=== PATIENT | female | born 1980 | race Caucasian/White ===

== ENCOUNTER 2016-07-31 15:09 | Emergency (ER) | payer MEDICARE ==
--- NOTE | 2016-07-31 15:56 | ED ---
General Adult HPI - General Chief complaint: Urogenital Stated complaint: poss UTI Time Seen by Provider: 07/31/16 15:41 Source: patient, RN notes reviewed Mode of arrival: ambulatory Limitations: no limitations - History of Present Illness Initial comments: This is a 36yo female who presents with dysuria and frequency of urination. Patient states this has been going on since Friday. Patient states that she's been drinking cranberry juice and water and this helped with symptoms for a day or 2 but now the symptoms are back and they're worse. Patient states she feels the urge to go but then voids very little. Patient denies any abdominal pain or back pain. Patient denies any recent fever, chills, shortness breath, chest pain, nausea/vomiting/diarrhea, numbness, tingling, hematuria, headache, or visual changes, or any other complaints. or back pain. Patient states she's had a tubal ligation and has an IUD. - Related Data Home Medications Medication Instructions Recorded Confirmed [place] Carbonate [[place]] 3 tab PO HS 08/10/15 08/10/15 clonazePAM [Clonazepam] 0.5 mg PO DAILY PRN 08/10/15 08/10/15 Divalproex [Depakote] 900 mg PO HS 07/31/16 07/31/16 Previous Rx's Medication Instructions Recorded Sulfamethox-Tmp 800-160Mg [Bactrim 1 tab PO Q12HR #28 tab 07/31/16 DS 800-160 mg] Allergies Allergy/AdvReac Type Severity Reaction Status Date / Time aripiprazole [From Abilify] Allergy Unknown Verified 07/31/16 15:37 latex Allergy Unknown Verified 07/31/16 15:37 Review of Systems ROS Statement: Those systems with pertinent positive or pertinent negative responses have been documented in the HPI. ROS Other: All systems not noted in ROS Statement are negative. Past Medical History Past Medical History: No Reported History Additional Past Medical History / Comment(s): SVT History of Any Multi-Drug Resistant Organisms: None Reported Past Surgical History: Section, Tonsillectomy, Tubal Ligation Past Psychological History: Anxiety, Bipolar, PTSD Smoking Status: Current every day smoker Past Alcohol Use History: Occasional Past Drug Use History: Marijuana General Exam - General Exam Comments Initial Comments: General: The patient is awake and alert, in no distress, and does not appear acutely ill. Mouth and throat: There are moist mucous membranes and no oral lesions. Neck: The neck is supple, there is no tenderness or JVD. Cardiovascular: There is a regular rate and rhythm. No murmur, rub or gallop is appreciated. Respiratory: Lungs are clear to auscultation, respirations are non-labored, breath sounds are equal. No wheezes, stridor, rales, or rhonchi. Gastrointestinal: Soft, non-distended, non-tender abdomen without masses or organomegaly noted. There is no rebound or guarding present. No CVA tenderness. Bowel sounds are unremarkable. Musculoskeletal: Normal ROM, no tenderness. Strength 5/5. Sensation intact. Radial pulses equal bilaterally 2+. Neurological: A&O x 3. CN II-XII intact, There are no obvious motor or sensory deficits. Coordination appears grossly intact. Speech is normal. Skin: Skin is warm and dry and no rashes or lesions are noted. Psychiatric: Cooperative, appropriate mood & affect, normal judgment. Limitations: no limitations Course Vital Signs 07/31/16 15:35 Temperature 98.1 F Pulse Rate 95 Respiratory 18 Rate Blood Pressure 100/68 O2 Sat by Pulse 97 Oximetry Medical Decision Making - Medical Decision Making This is a 36-year-old female presents with complaints of dysuria and frequency of urination. On physical exam abdomen is soft, nontender nondistended and there is no CVA tenderness. Patient is afebrile in the EC. A urinalysis was done and reviewed and came back positive for UTI. I discussed that patient may have a course of Bactrim. I discussed continuation of fluids and cranberry juice. I discussed return parameters such as fever/chills, abdominal pain, back pain, hematuria. I discussed the patient should follow-up with her primary care physician in one to 2 days or return to the EC for any worsening symptoms or for any further concerns. Patient was receptive to this plan and patient will be discharged home - Lab Data Lab Results 07/31/16 Range/Units 15:40 Urine Color Light Yellow Urine Appearance Cloudy H (Clear) Urine pH 7.5 (5.0-8.0) Ur Specific [place] 1.006 (1.001-1.035) Urine Protein Negative (Negative) Urine Glucose (UA) Negative (Negative) Urine Ketones Negative (Negative) Urine Blood Moderate H (Negative) Urine Nitrate Positive H (Negative) Urine Bilirubin Negative (Negative) Urine Urobilinogen <2.0 (<2.0) mg/dL Ur Leukocyte Esterase Large H (Negative) Urine RBC 11 H (0-5) /hpf Urine WBC 171 H (0-5) /hpf Ur Squamous Epith Cells 2 (0-4) /hpf Calcium Oxalate Crystal Rare H (None) /hpf Urine Bacteria Rare H (None) /hpf Urine Yeast (Budding) Occasional H (None) /hpf Disposition Clinical Impression: Urinary tract infection Disposition: HOME SELF-CARE Condition: Good Instructions: Urinary Tract Infection in Women (ED) Additional Instructions: Please finish entire course of antibiotics. Please continue drinking plenty of fluids and/or cranberry juice. Please return to the EC for any worsening symptoms or for any further concerns. Please follow up with your PCP in 1-2 days. Prescriptions: Sulfamethox-Tmp 800-160Mg [Bactrim DS 800-160 mg] 1 tab PO Q12HR #28 tab Referrals: Nonstaff,Physician [Primary Care Provider] - 1-2 days Aggie Pierre MD [STAFF PHYSICIAN] - 1-2 days Time of Disposition: 16:21
[2016-07-31 16:07] LABS: Appearance,Urine Cloudy (Clear); Bacteria,Urine Rare /hpf; Bilirubin,Urine Negative (Negative); Calcium Oxalate Crystals,Urine Rare /hpf; Glucose,Urine (UA) Negative (Negative); Ketones,Urine Negative (Negative); Leukocyte Esterase,Urine Large (Negative); Nitrite,Urine Positive (Negative); PH, Urine 7.5 (5.0-8.0); Particle Count 13394; Protein,Urine Negative (Negative); RBC,Urine 11 /hpf (0-5); Specific Gravity,Urine 1.006 (1.001-1.035); Squamous Epithelial Cell,Urine 2 /hpf (0-4); UA Billing (MACRO vs. MICRO) MICRO; Urobilinogen,Urine <2.0 mg/dL (<2.0); WBC,Urine 171 /hpf (0-5)
[2016-07-31 16:32] VITALS: BP 138/56; PULSE 65; RESP 20; TEMP 97.9
== END 2016-07-31 16:25 | disposition home or self-care (01) ==
LOC: EC 15:09
DX: N39.0 Urinary tract infection, site not specified (principal); Z79.899 Other long term (current) drug therapy; Z91.040 Latex allergy status; Z88.8 Allergy status to other drugs, medicaments and biological substances; F41.8 Other specified anxiety disorders; F31.9 Bipolar disorder, unspecified; F43.10 Post-traumatic stress disorder, unspecified; F17.200 Nicotine dependence, unspecified, uncomplicated
CPT/HCPCS: 81001; 87086; 99283

== ENCOUNTER 2016-10-01 16:46 | Emergency (ER) | payer MEDICARE, OTHER ==
[2016-10-01 17:45] VITALS: BP 100/73; PULSE 81; RESP 20; TEMP 97.8
[2016-10-01] MEDS ORDERED: KETOROLAC 60 MG/2 ML VIAL IM STA (18:21)
--- NOTE | 2016-10-01 18:31 | ED ---
Upper Extremity HPI - General Chief Complaint: Extremity Injury, Upper Stated Complaint: Shoulder Pain Time Seen by Provider: 10/01/16 18:13 Source: patient, RN notes reviewed Mode of arrival: ambulatory Limitations: no limitations - History of Present Illness Initial Comments: 36-year-old female presents emergency Department chief complaint of right shoulder pain. Patient has had chronic right shoulder pain for the last 2 years. Patient states she's been to physical therapy as well as seen her doctor for this. They she states that she quit physical therapy was not helping. She states she just has his right shoulder pain and will radiate down her right arm. She states it's been exactly this way for the past year or so. Patient denies any new falls traumas or injuries. Patient states she has not been taking anything for pain she does not have anything to take. Patient states she needs something to help with the pain.Patient denies any recent fever , chills, shortness of breath, chest pain, back pain, abdominal pain, nausea vomiting, numbness or tingling, dysuria or hematuria, constipation or diarrhea, headaches or visual changes, or any other current symptoms. - Related Data Home Medications Medication Instructions Recorded Confirmed clonazePAM [Clonazepam] 0.5 mg PO DAILY PRN 08/10/15 10/01/16 Divalproex [Depakote] 900 mg PO HS 07/31/16 10/01/16 Ziprasidone HCl [Geodon] 40 mg PO DAILY 10/01/16 10/01/16 Previous Rx's Medication Instructions Recorded Ibuprofen [Motrin] 600 mg PO Q6HR PRN #20 tab 10/01/16 predniSONE 50 mg PO DAILY #5 tab 10/01/16 Allergies Allergy/AdvReac Type Severity Reaction Status Date / Time aripiprazole [From Abilify] Allergy Unknown Verified 10/01/16 17:45 latex Allergy Unknown Verified 10/01/16 17:45 Review of Systems ROS Statement: Those systems with pertinent positive or pertinent negative responses have been documented in the HPI. ROS Other: All systems not noted in ROS Statement are negative. Past Medical History Past Medical History: No Reported History Additional Past Medical History / Comment(s): SVT History of Any Multi-Drug Resistant Organisms: None Reported Past Surgical History: Section, Tonsillectomy, Tubal Ligation Past Psychological History: Anxiety, Bipolar, PTSD Smoking Status: Current some day smoker Past Alcohol Use History: Occasional Past Drug Use History: Marijuana General Exam - General Exam Comments Initial Comments: General: The patient is awake and alert, in no distress, and does not appear acutely ill. Neck: The neck is supple, there is no tenderness or JVD. Cardiovascular: There is a regular rate and rhythm. No murmur, rub or gallop is appreciated. Respiratory: Lungs are clear to auscultation, respirations are non-labored, breath sounds are equal. No wheezes, stridor, rales, or rhonchi. Musculoskeletal: Sensation intact a 2+ pulses. Right upper extremity. Full range of motion of the right shoulder however pain to palpation and pain in all planes with range of motion of the Right shoulder. Patient so tenderness patient along the right neck. 2+ pulses throughout. Neurological: CN II-XII intact, There are no obvious motor or sensory deficits. Coordination appears grossly intact. Speech is normal. Skin: Skin is warm and dry and no rashes or lesions are noted. Psychiatric: Normal mood and affect. Limitations: no limitations Course Vital Signs 10/01/16 17:43 Temperature 97.8 F Pulse Rate 81 Respiratory 20 Rate Blood Pressure 100/73 O2 Sat by Pulse 100 Oximetry Medical Decision Making - Medical Decision Making 36-year-old female presents for appears to be chronic right shoulder strain. This time we discussed we will give her orthopedic associates to follow-up for shoulder pain. She received Toradol here. We'll start her Motrin may also did give her a current use of steroids to the fact there is some radiation the pain. We did discuss return parameters and follow-up and all patient's questions. She stated that she understood and is in agreement with plan. This time she'll be discharged home. Disposition Clinical Impression: Right shoulder strain Disposition: HOME SELF-CARE Condition: Stable Instructions: Shoulder Sprain (ED) Additional Instructions: Please use medication as discussed. Please follow up with family doctor if symptoms have not improved over the next two days. Please return to the emergency room if your symptoms increase or worsen or for any other concerns. Prescriptions: Ibuprofen [Motrin] 600 mg PO Q6HR PRN #20 tab PRN Reason: Pain predniSONE 50 mg PO DAILY #5 tab Referrals: Nonstaff,Physician [Primary Care Provider] - 1-2 days Aggie Pierre MD [STAFF PHYSICIAN] - 1-2 days Anderson Moreland DO [Doctor of Osteopathic Medicine] - 1-2 days Time of Disposition: 18:31
== END 2016-10-01 18:46 | disposition home or self-care (01) ==
LOC: EC 16:46
DX: S46.911A Strain of unspecified muscle, fascia and tendon at shoulder and upper arm level, right arm, initial encounter (principal); F41.9 Anxiety disorder, unspecified; F31.9 Bipolar disorder, unspecified; F17.200 Nicotine dependence, unspecified, uncomplicated; Z79.899 Other long term (current) drug therapy; Z91.040 Latex allergy status; Z88.8 Allergy status to other drugs, medicaments and biological substances; X58.XXXA Exposure to other specified factors, initial encounter
CPT/HCPCS: 99283; 96372; J1885

== ENCOUNTER 2017-09-25 17:04 | Emergency (ER) | payer MEDICARE ==
[2017-09-25 17:30] VITALS: BP 108/71; PULSE 95; RESP 18; TEMP 98.8
--- NOTE | 2017-09-25 17:50 | ED ---
General Adult HPI - General Chief complaint: Upper Respiratory Infection Stated complaint: flu like symptoms Time Seen by Provider: 09/25/17 17:33 Source: patient, RN notes reviewed Mode of arrival: ambulatory Limitations: no limitations - History of Present Illness Initial comments: Patient's 37-year-old female presenting to the emergency room today with a chief complaint cough congestion over the past week. Does admit to positive sputum production. States her boyfriend has similar symptoms. Does admit some body aches chills but no fever. Denies any other complaints. Patient denies any recent fever, shortness of breath, chest pain, back pain, abdominal pain, nausea or vomiting, numbness or tingling, dysuria or hematuria, constipation or diarrhea, headaches or visual changes, or any other complaints. - Related Data Home Medications Medication Instructions Recorded Confirmed clonazePAM [Clonazepam] 0.5 mg PO DAILY PRN 08/10/15 10/01/16 Divalproex [Depakote] 900 mg PO HS 07/31/16 10/01/16 Ziprasidone HCl [Geodon] 40 mg PO DAILY 10/01/16 10/01/16 Previous Rx's Medication Instructions Recorded Ibuprofen [Motrin] 600 mg PO Q6HR PRN #20 tab 10/01/16 predniSONE 50 mg PO DAILY #5 tab 10/01/16 Cyclobenzaprine [Flexeril] 10 mg PO TID #15 tab 08/11/17 Ibuprofen [Motrin] 600 mg PO Q8HR PRN #30 tab 08/11/17 Azithromycin [Zithromax Z-pack] 0 mg PO DIRECTED #6 tab 09/25/17 methylPREDNISolone Dose Pack 4 mg PO DIRECTED #21 package 09/25/17 [Medrol Dose Pack] Allergies Allergy/AdvReac Type Severity Reaction Status Date / Time aripiprazole [From Abilify] Allergy Unknown Verified 08/11/17 00:09 latex Allergy Unknown Verified 08/11/17 00:09 Review of Systems ROS Statement: Those systems with pertinent positive or pertinent negative responses have been documented in the HPI. ROS Other: All systems not noted in ROS Statement are negative. Past Medical History Past Medical History: No Reported History Additional Past Medical History / Comment(s): SVT History of Any Multi-Drug Resistant Organisms: None Reported Past Surgical History: Section, Tonsillectomy, Tubal Ligation Additional Past Surgical History / Comment(s): wisdom teeth Past Psychological History: Anxiety, Bipolar, PTSD Smoking Status: Current some day smoker Past Alcohol Use History: Occasional Past Drug Use History: Marijuana General Exam - General Exam Comments Initial Comments: General: The patient is awake and alert, in no distress, and does not appear acutely ill. Eye: Pupils are equal, round and reactive to light, extra-ocular movements are intact. No nystagmus. There is normal conjunctiva bilaterally. No signs of icterus. Ears, nose, mouth and throat: There are moist mucous membranes and no oral lesions. Neck: The neck is supple, there is no tenderness or JVD. Cardiovascular: There is a regular rate and rhythm. No murmur, rub or gallop is appreciated. Respiratory: Lungs are clear to auscultation, respirations are non-labored, breath sounds are equal. No wheezes, stridor, rales, or rhonchi. Musculoskeletal: Normal ROM, no tenderness. Strength 5/5. Sensation intact. Pulses equal bilaterally 2+. Neurological: A&O x 3. CN II-XII intact, There are no obvious motor or sensory deficits. Coordination appears grossly intact. Speech is normal. Skin: Skin is warm and dry and no rashes or lesions are noted. Psychiatric: Cooperative, appropriate mood & affect, normal judgment. Limitations: no limitations Course Vital Signs 09/25/17 17:27 Temperature 98.8 F Pulse Rate 95 Respiratory 18 Rate Blood Pressure 108/71 O2 Sat by Pulse 100 Oximetry Medical Decision Making - Medical Decision Making Patient be treated with Z-Jordan and steroid for acute bronchitis advised follow family doctor return for any other concerns. Disposition Clinical Impression: Acute bronchitis Disposition: HOME SELF-CARE Condition: Good Instructions: Upper Respiratory Infection (ED) Additional Instructions: Please use medication as discussed. Please follow-up with family doctor in the next 2 days of symptoms have not improved. Please return to emergency room if the symptoms increase or worsen or for any other concerns. Prescriptions: Azithromycin [Zithromax Z-pack] 0 mg PO DIRECTED #6 tab methylPREDNISolone Dose Pack [Medrol Dose Pack] 4 mg PO DIRECTED #21 package Referrals: Nonstaff,Physician [Primary Care Provider] - 1-2 days Time of Disposition: 17:50
== END 2017-09-25 18:03 | disposition home or self-care (01) ==
LOC: EC 17:04
DX: J20.9 Acute bronchitis, unspecified (principal); F31.9 Bipolar disorder, unspecified; F17.200 Nicotine dependence, unspecified, uncomplicated; Z79.899 Other long term (current) drug therapy; Z88.8 Allergy status to other drugs, medicaments and biological substances; Z91.040 Latex allergy status
CPT/HCPCS: 99283

== ENCOUNTER → 2023-05-12 | Outpatient (CLI) | payer MEDICARE ==
--- NOTE | 2023-05-13 18:41 | MM ---
Reason for Exam: Screening (asymptomatic). Patient History: Menarche at age 11. First Full-Term at age 30. Premenopausal. Risk Values: Adele 5 year model risk: 0.7%. NCI Lifetime model risk: 12.0%. Tissue Density: The breast tissue is heterogeneously dense. This may lower the sensitivity of mammography. Findings: Analyzed By CAD. There is no suspicious group of microcalcifications, significant mass, or other discrete abnormality seen in either breast. Overall Assessment: Negative, BI-RAD 1 Management: Screening Mammogram of both breasts in 1 year. . Patient should continue monthly self-breast exams. A clinical breast exam by your physician is recommended on an annual basis. This exam should not preclude additional follow-up of suspicious palpable abnormalities. Note on Adele scores and lifetime risk: 1. A Adele score greater than 3% is considered moderate risk. If this is the case, consider specialist referral to assess eligibility for a risk reducing agent. 2. If overall lifetime risk for the development of breast cancer is 20% or higher, the patient may qualify for future screening with alternating mammogram and breast MRI. Electronically signed and approved by: Gavi Duran M.D. Radiologist
== END | disposition home or self-care (01) ==
LOC: RADMAMWWP 15:21
DX: Z12.31 Encounter for screening mammogram for malignant neoplasm of breast (principal)
CPT/HCPCS: 77067